=== PATIENT | male | born 1955 ===

== ENCOUNTER 2018-03-20 08:19 | Day surgery (SDC) | payer BC ==
[~2018-03-20] VITALS: Ht 182.9 cm; Wt 141.1 kg
[~2018-03-20 08:19] MED LIST: Omeprazole20 M1 PO
== END 2018-03-20 11:50 | disposition home or self-care (01) ==
LOC: ORSCMMR 08:19 → ORD 09:45 → ORSCMMR 09:45
DX: K21.9 Gastro-esophageal reflux disease without esophagitis (principal); K29.80 Duodenitis without bleeding; K30 Functional dyspepsia; Z12.11 Encounter for screening for malignant neoplasm of colon; D12.0 Benign neoplasm of cecum; E66.01 Morbid (severe) obesity due to excess calories; Z68.41 Body mass index [BMI] 40.0-44.9, adult
CPT/HCPCS: 88305; J7120